=== PATIENT | male | born 1980 | race Two or more races ===

== ENCOUNTER 2024-05-10 19:53 | Emergency (ER) | payer MEDICAID, SELFPAY ==
--- NOTE | ~2024-05-10 | XR_ITS ---
EXAMINATION: XR KNEE, RIGHT CLINICAL INFORMATION: Diffuse pain, swelling COMPARISON: None available. TECHNIQUE: Four views of the right knee. FINDINGS: No acute fracture. Small joint effusion. Alignment is anatomic. Joint spaces are maintained. No abnormal soft tissue calcification. XR/XR knee RT 3V IMPRESSION: Small joint effusion.
--- NOTE | ~2024-05-10 | US_ITS ---
EXAMINATION: US VENOUS ULTRASOUND WITH DOPPLER LOWER EXTREMITY, RIGHT CLINICAL INFORMATION: Right calf pain COMPARISON: None available. TECHNIQUE: Ultrasound of the deep veins is performed from the hip to the calf with compression sonography and color and pulse Doppler assessment. Spectral analysis with color-flow imaging is performed. FINDINGS: There is normal venous compression and respiratory variation and augmented flow. The visualized common femoral vein, superficial femoral vein, profunda femoral vein, popliteal vein, and the trifurcation region shows no evidence of deep venous thrombosis. There is no significant popliteal fossa cyst. If the patient's symptoms persist, followup ultrasound in 5 days 7 days might be of value to exclude proximal propagation from a non-visualized calf vein. US/US venous duplex LE RT IMPRESSION: No DVT demonstrated in the right lower extremity.
--- NOTE | 2024-05-10 19:55 | ED_ITS ---
HPI - General Adult General Chief complaint: Extremity Injury, Lower Stated complaint: R knee pain, no injury Time Seen by Provider: 05/10/24 21:29 Source: patient and RN notes reviewed Mode of arrival: ambulatory Limitations: no limitations History of Present Illness ED Provider: Sheridan Mora PA-C [facility] narrative: This is a 43-year-old male who presents emergency department with complaints atraumatic right knee pain x3 days. Patient reports that 3 days ago he awoke with right-sided knee pain. He denies any injury to his leg in the past. He reports that did fly to [place] 2 weeks ago. He denies chest pain or shortness for breath. He denies previous injury to the right knee. Denies taking any medications at home to treat his pain. Denies any fevers or chills. Denies any other complaints or concerns at this time. MD complaint: Right knee pain Onset (ago): day(s) Location: lower extremity Radiation: non-radiation Severity: moderate Relieving factors: none and rest Exacerbating factors: movement Associated symptoms: denies other symptoms Treatments prior to arrival: none Related Data Allergies Allergy/AdvReac Type Severity Reaction Status Date / Time No Known Allergies Allergy Verified 05/10/24 19:57 Review of Systems Review of Systems: Yes all other systems are reviewed and are negative Constitutional: Constitutional: Reports as per [facility] Social History Social History Advance Directives: No Advance Directives Information Provided: No Do you have a plan to hurt others: No Plan Physical Exam ED Vital Signs: Vital Signs - 24 hr 05/10/24 19:56 05/10/24 22:07 Temperature 98.4 F 98.1 F Pulse Rate 78 72 Respiratory Rate 16 18 Blood Pressure 134/77 124/66 Pulse Oximetry 97 96 Oxygen Delivery Method Room Air Room Air BMI result Body Mass Index 40.2 Const General: cooperative, comfortable and no acute distress Orientation/consciousness: patient oriented x3 Limitations: no limitations HENMT Head: Yes normal to inspection, Yes normocephalic and Yes atraumatic Ears: hearing grossly normal bilaterally General nose exam: Normal external nose present Face and sinus: Yes normal facial exam Mouth: Normal oral and palatal mucosa present, oropharynx normal and moist mucous membranes Throat: Yes posterior oropharynx normal Eyes General: appearance normal, both eyes and all related structures Eyelids: Yes eyelids normal Conjunctivae: conjunctivae normal Sclerae: sclerae normal Pupils: Equal, round and reactive pupils present EOM: EOMs intact bilaterally Neck Neck: Yes normal visual inspection, Yes full ROM and Yes no lymphadenopathy Lymphatic: no lymphadenopathy noted Chest Chest palpation & inspection: normal inspection of the chest Resp Effort & Inspection: normal respiratory effort and able to speak in complete sentences Auscultation: clear to auscultation bilaterally, no crackles, no rales, no rhonchi and no wheezes Cardio Rate: regular rate Rhythm: regular rhythm Heart sounds: S1 normal heart sound present and S2 normal heart sound present GI Inspection: Yes normal to inspection Skin General skin exam: no rashes or lesions noted Trauma: no lacerations or abrasions Wounds: no wounds Neuro General: patient oriented x3 and moves all extremities Cranial nerves: Yes Equal, round and reactive pupils present Extrem Other: Tenderness palpation along the right calf. Strong DP pulse. He has tenderness palpation along the medial and lateral joint line, negative anterior-posterior drawer test, no joint laxity with varus and valgus strain. No overlying skin changes, warmth. No crepitus noted with extension and flexion of the knee. Full range of motion without difficulty. General: Yes normal to inspection Right upper extremity: normal to inspection Left upper extremity: normal to inspection Right lower extremity: normal to inspection Left lower extremity: normal to inspection Course Course Course Narrative: This is an RME performed by Caty Wright CNP: Additional HPI, ROS, PE not included below will be deferred to primary provider. Patient is a 43 year old male who presents emergency department for evaluation of atraumatic right knee pain and swelling over the past few days. Denies any redness fevers or chills. Plan: XR Reevaluation(s) Reevaluation #1: X-ray revealing small joint effusion, otherwise no other abnormality seen. Pending ultrasound. Time: 01:11 Reevaluation #2: Ultrasound is still pending at this time however it appears that patient has eloped from the emergency room, he did not complete treatment. Time: 02:00 Reevaluation #3: Ultrasound returns, no DVT. Again patient has left the emergency room. Time: 02:03 Medical Decision Making Medical Decision Making MDM Narrative: This is a 43-year-old male who presents emergency department with complaints of right knee pain x3 days. On arrival, vital signs within normal limits. He has tenderness palpation along the medial and lateral joint line. He also has calf tenderness. A recent flight 2 weeks ago to [place]. He has no chest pain or shortness of breath. Differential diagnoses include knee sprain, strain, contusion, DVT. Plan: Knee x-ray, ultrasound Differential Diagnosis Differential Diagnoses: The differential diagnosis associated with the presentation includes See above Radiology Impression Discussion of test interpretation with radiology: I have reviewed the radiologist's reading. External Record Review External record reviewed: Inpatient record, Office record, Outpatient record, Prior outpatient labs, Prior outpatient radiology, Primary care record and Outside ED record Discharge Plan Discharge Clinical Impression: Acute knee pain Patient Disposition: Left W/O Completing Treatment Instructions: Knee Pain (ED) Additional Instructions: You were seen in the emergency department due to right knee pain. Your x-ray shows some swelling. There were no broken bone seen on your x-ray. Your ultrasound was reviewed as ?. Please rest, ice, take ibuprofen and/or Tylenol as needed for pain. You need follow-up with Orthopedics, call on Monday to make an appointment. If any new or worsening symptoms occur including but not limited to chest pain or shortness of breath, please return for re-evaluation. Referrals: [facility] [Provider Group] Print Language: Barbadian
[2024-05-10 19:56] VITALS: BP 134/77; PULSE 78; RESP 16; TEMP 36.9; O2SAT 97; BMI 40.2
[2024-05-10 22:07] VITALS: BP 124/66; PULSE 72; RESP 18; TEMP 36.7; O2SAT 96
--- NOTE | 2024-05-10 23:52 | MHC.EDTECH ---
Patient is very upset because he has not seen a doctor yet ,so he refused vitals stacey cantor aware .
--- NOTE | 2024-05-11 01:15 | PC.NURSE ---
Upon entering room to medicate Pt, Pt not in [facility] room.
== END 2024-05-11 02:00 | disposition left against medical advice (07) ==
PROVIDERS: Emergency Provider Emergency Medicine
DX: M25.561 Pain in right knee (principal); M25.461 Effusion, right knee; M79.661 Pain in right lower leg
CPT/HCPCS: 73562; 93971; 99283; 99284

== ENCOUNTER 2025-07-14 19:36 | Emergency (ER) | payer MEDICAID, SELFPAY ==
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
--- OUTSIDE RECORDS SUMMARY | 2025-07-11 11:00 | XMS_ITS ---
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
--- OUTSIDE RECORDS SUMMARY | 2025-07-14 09:30 | XMS_ITS ---
Author Organization [facility] Address [address] [place] [address] Care Team Providers Care Bee Robber Name Role Phone Anibal Palacios Primary Care Provider [facility], Nursing Unavailable [phone] Allergies No Known Allergies REASON FOR VISIT Office: urine Medications Medication SIG (Take, Route, Frequency, Duration) Notes Start Date End Date Status Nicoderm CQ 7 MG/24HR 1 ea transdermally once a day for 30 day(s) 12/22/2016 Unknown Glucosamine 750 MG 2 tab(s) orally once a day for 30 day(s) 03/17/2017 Unknown Naproxen 500 MG 1 tab(s) orally 2 times a day with food. stop for stomach pain for 30 day(s) 12/21/2016 Unknown GLUCOSAMINE/CHOND ROTIN 2000MG ONE ORALLY DAILY for 30 DAY(S) *Please review for potential replacement for e-prescription and drug interaction check* 12/21/2016 Unknown buPROPion HCl ER (XL) 300 MG 1 tab(s) orally every 24 hours for 30 days Not-Taking amLODIPine Besylate 10 MG 1 tab(s) orally once a day Active cloNIDine HCl 0.2 MG 1 tab(s) orally 2 times a day for 30 days Active Suboxone 8-2 MG 1 film(s) sublingually three times a day Active Gabapentin 800 MG 1 tab(s) orally 3 times a day for 30 days Active Lidoderm 5 % 1 PATCH applied topically once a day.Apply to upper back in the morning and remove at night for 90 days Active ZEPBOUND PEN 2.5 MG/0.5 ML DIRECTED SUBCUTANEOUSLY ONCE A WEEK for 28 DAYS *Please review for potential replacement for e-prescription and drug interaction check* 06/17/2025 Active Vitamin D3 1000 UNIT 1 cap(s) orally once a day 12/21/2016 Active Nicotine Polacrilex 2 MG 1 GUM chewed every 2 hours Active Losartan Potassium-HCTZ 50-12.5 MG 1 tab(s) orally twice a day for 90 days 02/20/2025 Active Diclofenac Sodium 1 % 2.25 inch applied topically 4 times a day 02/20/2025 Active Social History Tobacco Use: Social History Observation Description Date Details (start date - stop date) Current Smoker NA - NA Sex Assigned At : Social History Observation Description Sex Assigned At Male Tobacco Use Assessment MU Question Answer Notes What is your current smoking status? current smo ker How often do you smoke? every day How many cigarettes a day do you smoke? 11-20 How soon after you wake up d o you smoke your first cigarette? 6-30 minutes Are you interested in quitting? thinking about q uitting using Nicorette gum Patient counseled on the scott gers of tobacco use and advised to quit: 11/11/2024 Trying Vital Signs Temperature 97.0 degrees Fahrenheit 07/14/20 25 Height 69 in 07/14/2025 Encounters Encounter Location Date Provider Diagnosis [address] [address] 07/14/[address] 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 Next Appt Details Follow Up: prn, Reason: Progress Notes * Eloy PUTNAMDOB:1980 (44 yo M)Acc No.[id number]:07/14/2025 Progress Notes Patient: Eloy MCKENZIE Provider: Madi ryan [facility] :1980 A ge:44 Y S ex:Male Date:07/14/2025 Address:[address] [place] [address] Pcp:Anibal Palacios Subjective: * Chief Complaints: * 1 . Office: urine. * HPI: G eneral: Pt. reports to clinic for urine labs, pt. denies any conerns. * Medications: T aking Diclofenac Sodium 1 [...] cap(s) orally once a day , Taking Losartan Potassium-HCTZ 50-12.5 MG Tablet 1 tab(s) orally twice a [...] the morning and remove at night , Taking Gabapentin 800 MG Tablet 1 tab(s) orally 3 times a day , Not-Taking/PRN buPROPion HCl ER (XL) 300 [...] Tablet 2 tab(s) orally once a day , Medication List reviewed and reconciled with the patient Objective: * Vitals: H t: 69, Temp: 97.0. Assessment: * Assessment: 1. E ncounter for screening, unspecified - Z13.9 (Primary) Plan: * Treatment: * Procedure Codes: 9 9000 SPECIMEN HANDLING * Follow Up: p rn * Images: Billing Information: * Visit Code: * Procedure Codes: 98030 SPECIMEN HANDLING. * Electronic signature of Nurs [facility] on 07/15/2025 at 12:39 AM EDT Sign off status: Pending * Provider: Madi ryan [facility] Date: 1 Generated for Amanda Norman/Kelvin on: 1 12:39 AM EDT
--- OUTSIDE RECORDS SUMMARY | 2025-07-14 09:55 | XMS_ITS ---
Author Organization [facility] Address [address] [place] [address] Care Team Providers Care Drawing In Hand Name Role Phone Maria Ayudy Anibal Primary Care Provider REASON FOR VISIT Burning & blood with urination Social History Sex Assigned At : Social History Observation Description Sex Assigned At Male Encounters Encounter Location Date Provider Diagnosis [address] [address] 07/14/2025 Anibal Palacios Hematuria, unspecified R31.9 Assessments Encounter Date Diagnosis (ICD Code) Assessment Notes Treatment Notes Treatment Clinical Notes Section Notes 07/14/2025 Hematuria, unspecified (ICD-10 - R31.9) Plan Of Treatment Pending Test Test Name Order Date URINE CULTURE 07/14/2025 Future Test Test Name Order Date URINALYSIS 07/15/2025 Progress Notes * Eloy PUTNAMDOB:1980 (44 yo M)Acc No.[id number]:07/14/2025 Patient: Eloy MCKENZIE :1980 A ge:44 Y S ex:Male Address:[address] [place] [address], [place] [address] Subjective: * Chief Complaints: * B urning & blood with urination * Medical History: * Surgical History: * Hospitalization/Major Diagno stic Procedure: * Medications: Objective: * Vitals: * Physical Examination: Assessment: * Assessment: 1. H ematuria, unspecified - R31.9 (Primary) Plan: * Treatment: * Procedure Codes: * * Date:
[2025-07-14 19:57] VITALS: BP 158/77; PULSE 84; RESP 18; TEMP 36.9; O2SAT 96; BMI 38.4
[2025-07-14 20:28] LABS: MANUAL DIFF FLAG NO
[2025-07-14 20:29] LABS: Hematocrit 44.1 % (42.0-52.0); Hemoglobin 15.4 g/dl (14.0-18.0); Imm Gran Abs Auto 0.08 X10*3/uL (0.00-0.03); Imm Gran Pct Auto 0.7 % (0.0-0.4); Lymphocytes Absolute Auto 1.6 X10*3/uL (1.2-4.9); Mean Corpuscular HGB Conc 34.9 g/dl (31.0-36.0); Mean Corpuscular Hemoglobin 26.8 pg (27.0-33.0); Mean Corpuscular Volume 76.8 fL (80.0-98.0); NRBC Abs Auto 0.000 X10*3/uL (0.0-0.012); NRBC Pct Auto 0.0 /100WBC (0.0-0.2); Platelet Count 243 X10*3/uL (160-400); Red Blood Count 5.74 X10*6/uL (4.60-5.80); White Blood Count 12.0 X10*3/uL (4.8-10.8)
[2025-07-14 20:42] LABS: Alanine Aminotransferase 58 U/L (0-40); Albumin Level 4.6 g/dL (3.5-5.0); Alkaline Phosphatase 90 U/L (39-117); Anion Gap 13 (12-20); Aspartate Amino Transferase 41 U/L (5-37); Blood Urea Nitrogen 16 mg/dL (9-16); Calcium 9.5 mg/dL (8.4-10.2); Carbon Dioxide 26 mmol/L (22-29); Chloride 105 mmol/L (96-108); Creatinine Clr Calc Pharmacy 124.4; Estimated Glomerular Filt Rate > 60; Potassium 4.1 mmol/L (3.3-5.1); Sodium 140 mmol/L (135-145); Total Protein 8.2 g/dL (6.5-8.0)
--- NOTE | 2025-07-14 22:54 | ED_ITS ---
HPI - General Adult General Chief complaint: General Medical Stated complaint: bllood in stool, fever, constipation Time Seen by Provider: 07/14/25 22:54 Source: patient Limitations: no limitations History of Present Illness ED Provider: Dr. Niyah Mendoza HPI narrative: 44 year old male with history of HTN and hemorrhoids presenting with dysuria and hematuria ongoing for the last 3 days or so. States he had to strain to have a BM about 3 days ago and noticed blood in the toilet at that time. Over the next 3 days, though, he had associated dysuria and notice blood-tinged urine as well. No reported testicular pain or swelling. No bulges in his groin. Bloody stools had since resolved. No pain with defecation. Denies associated fevers or chills, cough or cold-type symptoms, known sick contacts or travel. Denies STD exposure. No penile drainage. Related Data Previous Rx's ?Medication ?Instructions ?Recorded cephalexin 500 mg capsule 500 mg PO QID 7 days #28 cap s 07/15/25 phenazopyridine 100 mg tablet 100 mg PO TID PRN pain 6 doses #6 07/15/25 (Pyridium) tabs phenylephrine 0.25 %-mineral oil 1 appl SC BID #57 gra ms 07/15/25 14 %-petrolatm 74.9 % rectal ointment (Preparation H) polyethylene glycol 3350 17 17 g PO DAILY #119 grams 1 gram/dose oral powder (Miralax) Allergies Allergy/AdvReac Type Severity Reaction Status Date / Time No Known Allergies Allergy Verified 07/14/25 20:03 Review of Systems 2 Review of Systems: as per HPI, full review of systems performed and negative but for the above mentioned pertinent positives and negatives.[facility] Social History Social History Advance Directives: No Advance Directives Information Provided: Yes Physical Exam ED Exam Exam: GENERAL: Well-Appearing, conversant, no acute distress. SKIN: Normal skin color for ethnicity, warm, dry, no rashes noted. HEENT:? Normocephalic, atraumatic, no stridor, posterior oropharynx nonerythematous, dentition intact, EOMI. NECK: Soft, supple, full ROM, midline structures nontender, no step-offs, no deformities, no lymphadenopathy. CHEST: Heart regular rate and rhythm, no murmurs, symmetric chest rise and fall. PULMONARY: Clear to auscultation bilaterally, no labored breathing, no wheezes/rhales/rhonchi. ABDOMINAL: Soft, nondistended, nontender, positive bowel sounds in all quadrants. : Deferred. MUSCULOSKELETAL: Normal tone, full range of motion, no deformities, no peripheral edema. NEURO: Alert and oriented x3, CN II through XII intact, equal strength and sensation bilateral upper and lower extremities, no focal neurologic deficits.? PSYCHIATRIC: Normal affect, fluid speech, good eye contact and appropriate demeanor. Vital Signs: Vital Signs - 24 hr 07/14/25 19:57 07/14/25 23:06 Temperature 98.4 F 98.8 F Pulse Rate 84 74 Respiratory Rate 18 18 Blood Pressure 158/77 H 140/79 H Pulse Oximetry 96 96 Oxygen Delivery Method Room Air Room Air BMI result Body Mass Index 38.4 Medications Administered Discontinued Medications Generic Name Dose Route Start Last Admin Trade Name Freq PRN Reason Stop Dose Admin Cephalexin HCl 500 mg 07/15/25 00:14 07/15/25 00:46 Cephalexin 500 Mg Capsule PO 07/15/25 00:15 500 mg ONCE ONE Administration Ibuprofen 600 mg 07/15/25 00:14 07/15/25 00:45 Ibuprofen 600 Mg Tablet PO 07/15/25 00:15 600 mg ONCE ONE Administration Phenazopyridine HCl 200 mg 07/15/25 00:14 07/15/25 00:46 Phenazopyridine Hcl 200 Mg Tablet PO 07/15/25 00:15 200 mg ONCE ONE Administration Medical Decision Making Medical Decision Making [facility] Narrative: 44-year-old male presenting with hematuria and dysuria. Differential diagnosis includes UTI, STD exposure, epididymitis, testicular torsion, trauma to the penis or urethra, among others. Patient is nontoxic and has no abdominal pain on exam. exam does not reveal any evidence of hemorrhoid. He has no stool in the rectal vault. Plan for discharge home with laxatives, stool softeners, antibiotics for UTI, peridium for painful urination. Using shared decision making, plan for discharge home to follow-up with primary care and/or specialist. Patient understands and agrees with plan for discharge. Discharged home in stable condition. Differential Diagnosis Differential Diagnoses: The differential diagnosis associated with the presentation includes (as above) Admission/Observation Consideration of admission/observation: Escalation of care including admission/observation considered Lab Data MDM Lab Attestation statement: I reviewed the patient's lab results. 07/14/25 20:23 07/14/25 20:23 Labs: Lab Results 07/14/25 07/14/25 Range/Units 20:23 23:04 WBC 12.0 H (4.8-10.8) X10*3/uL RBC 5.74 (4.60-5.80) X10*6/uL Hgb 15.4 (14.0-18.0) g/dl Hct 44.1 (42.0-52.0) % MCV 76.8 L (80.0-98.0) fL MCH 26.8 L (27.0-33.0) pg MCHC 34.9 (31.0-36.0) g/dl RDW 13.7 (11.0-16.0) % Plt Count 243 (160-400) X10*3/uL MPV 9.9 (9.4-12.4) fL Immature Gran % (Auto) 0.7 H (0.0-0.4) % Neut % (Auto) 78.9 H (45-73) % Lymph % (Auto) 12.9 L (20-40) % [place] % (Auto) 6.4 (2-11) % Eos % (Auto) 0.9 (0-4) % Baso % (Auto) 0.2 (0-2) % Lymph # (Auto) 1.6 (1.2-4.9) X10*3/uL [place] # (Auto) 0.8 (0.1-1.2) X10*3/uL Eos # (Auto) 0.1 (0.0-0.4) X10*3/uL Baso # (Auto) 0.0 (0.0-0.2) X10*3/uL Abs Immat Gran (auto) 0.08 H (0.00-0.03) X10*3/uL Absolute Neuts (auto) 9.5 H (2.0-8.3) x10*3/uL Absolute Nucleated RBC 0.000 (0.0-0.012) X10*3/uL Nucleated RBC % (auto) 0.0 (0.0-0.2) /100WBC Sodium 140 (135-145) mmol/L Potassium 4.1 (3.3-5.1) mmol/L Chloride 105 (96-108) mmol/L Carbon Dioxide 26 (22-29) mmol/L Anion Gap 13 (12-20) BUN 16 (9-16) mg/dL Creatinine 0.95 (0.5-1.4) mg/dL Estim Creat Clear Calc 124.4 Estimated GFR > 60 Random Glucose 118 H (60-115) mg/dL Calcium 9.5 (8.4-10.2) mg/dL Total Bilirubin 0.5 (0.0-1.0) mg/dL AST 41 H (5-37) U/L ALT 58 H (0-40) U/L Alkaline Phosphatase 90 (39-117) U/L Total Protein 8.2 H (6.5-8.0) g/dL Albumin 4.6 (3.5-5.0) g/dL Urine Color Yellow Urine Appearance Clear Urine pH 5.0 (5.0-9.0) Ur Specific [place] 1.015 (1.005-1.025) Urine Protein Negative (Neg-Trace) mg/dL Urine Glucose (UA) Negative (Negative) mg/dL Urine Ketones Negative (Negative) mg/dL Urine Blood Moderate (2+) H (Negative) Urine Nitrite Negative (Negative) Ur Leukocyte Esterase Moderate (2+) H (Negative) Urine RBC 6-10 H (0-2) /HPF Urine WBC 21-50 H (0-5) /HPF Ur Squamous Epith Cells 0-2 (0-2) /HPF Urine Bacteria None Seen (None Seen) Hyaline Casts 0-2 (0-2) /LPF Independent Historian Clinical information obtained from an independent historian. History obtained from or confirmed by: Spouse External Record Review External record reviewed: Inpatient record Prescription Management I considered prescription management with: Pain Medication and Antibiotic Chronic Conditions Patient?s care impacted by: Hypertension Discharge Plan Discharge Clinical Impression: Bleeding hemorrhoids, Acute UTI Patient Disposition: Home, Self-Care Instructions: Hemorrhoids (ED), Urinary Tract Infection in Men (ED) Additional Instructions: Constipation Remedy 1 Lb prunes 1 Lb pitless dates 1 Lb raisins 16 teabags Smooth Move tea brewed in 2 cups water 1 Cup brown sugar 1 Cup lemon juice Mix in a rn digestive Put in freezer (never completely freezes) Can be used as a spread on crackers, toast, etc. (about 1-2 tablespoons per dose) Use stool softeners, laxatives and fiber additives to help with your constipation. You should be having at least 1 soft bowel movement per day to avoid developing hemorrhoids. Take your antibiotic as prescribed until the course is completed. Do not stop this medication early if you start to feel better. Return to the emergency department with any new or worsening symptoms including: Worsening pain or testicular pain, fevers greater than 100? despite antibiotic treatment, vomiting, or any new symptom that concerns you. Call 911 with any medical emergency. Prescriptions: New phenazopyridine [Pyridium] 100 mg tablet 100 mg PO TID PRN (Reason: pain) Qty: 6 0RF cephalexin 500 mg capsule 500 mg PO QID 7 Days Qty: 28 0RF Preparation H 0.25-14-74.9 % ointment 1 appl SC BID Qty: 57 0RF polyethylene glycol 3350 [Miralax] 17 gram/dose powder 17 g PO DAILY Qty: 119 0RF Interventions: ED Discharge Assessment Last Done: 07/15/25 01:00 Discharge Date/Time: 07/15/25 01:00 Print Language: Bhutanese
[2025-07-14 23:06] VITALS: BP 140/79; PULSE 74; RESP 18; TEMP 37.1; O2SAT 96
[2025-07-14 23:12] LABS: Appearance Urine Clear; Glucose Urine UA Negative (Negative); PH 5.0 (5.0-9.0); Specific Gravity - Urine 1.015 (1.005-1.025); UMIC TRIGGER UACC YES
[2025-07-14 23:17] LABS: UACC Culture Trigger YES
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
[2025-07-15 00:42] VITALS: BP 120/69; PULSE 74; RESP 18; TEMP 37.3; O2SAT 97
[2025-07-15 01:00] VITALS: BP 120/69; PULSE 74; RESP 18; TEMP 37.3; O2SAT 97
== END 2025-07-15 01:00 | disposition home or self-care (01) ==
PROVIDERS: Physician Assistant; Emergency Provider Emergency Medicine
DX: N39.0 Urinary tract infection, site not specified (principal); K64.9 Unspecified hemorrhoids
CPT/HCPCS: 36415; 80053; 81001; 85025; 87086; 99283; 99284